=== PATIENT | male | born 1950 | race Caucasian/White ===

== ENCOUNTER → 2017-01-18 | Outpatient (CLI) | payer MEDICAID ==
[~2017-01-18] MED LIST: ALDACTONE25 MG PO; AMLODIPINE-OLM1 EAC1 PO; APRESOLINE25 MG; ASPIRIN (CHILDR81 MG PO; BENADRYL ITCH28.3 G1 TOP; COLACE100 MG PO; CORDARONE,PACE200 MG PO; CORTISPORIN OIN15 GM TOP; COUMADIN ** IA5 MG PO; COUMADIN **IA1 MG PO; COUMADIN6 MG PO; DEEP SEA NASAL SPRAY NOSE; DULCOLAX10 MG R; ELIQUIS5 MG PO; EPOGEN (2020000 UNIT SUB-Q; FEOSOL325 MG PO; FISH OIL500 MG PO; FLOMAX0.4 MG PO; FLORASTOR250 MG PO; GLUCOPHAGE500 MG PO; IMODIUM A-D2 MG PO; IMODIUM2 MG PO; K-TAB ER20 MEQ PO; KLOR-CON M2020 MEQ PO; LASIX40 MG PO; LEVAQUIN500 MG PO; LIPITOR40 MG PO; LOPRESSOR25 MG PO; LOPRESSOR50 MG PO; LOVENOX40 MG/0.4 SUB-Q; MILK OF MA400 MG/5 M PO; MIRALAX17 GM PO; NASAL SPRAY30 M1; NIFEREX-150) (150 MG PO; NORCO 5-325 MG1 TAB PO; NORVASC10 MG; OXYBUTYNIN CHLO10 MG PO; PREVAGEN PO; PRINIVIL (ZESTRI5 MG PO; PROTONIX40 MG PO; PROVENTIL OR V6.7 GM INH; TEARGEN1 BOT OPHTH; TRICOR145 MG PO; TYLENOL325 MG PO; VANCOMYCIN1 GM IV; ZOFRAN4 MG PO; ZOLOFT100 MG PO; ZOSYN IV; ZYRTEC10 MG PO
[2017-01-18 09:10] LABS: ALBUMIN 3.4 gm/dL (3.5-5.0); TOTAL BILIRUBIN 0.5 mg/dL (0.0-1.5); TOTAL PROTEIN 6.5 g/dL (6.0-8.4)
== END | disposition disaster alternative care site (69) ==
PROVIDERS: Family Medicine
DX: E78.2 Mixed hyperlipidemia (principal)